=== PATIENT | female | born 1960 | race Caucasian/White ===

== ENCOUNTER 2023-07-18 14:14 | Emergency (ER) | payer BC, SELFPAY ==
[2023-07-18 14:14] VITALS: BMI 24.7
[2023-07-18 14:23] VITALS: BP 157/96
[2023-07-18 14:55] LABS: % Basophils 0.6 % (0-2); % Immature Granulocytes 0.3 % (0-0.5); % Lymphocytes 34.2 % (20.5-51.1); % Monocytes 8.2 % (1.7-9.3); % Neutrophils 51.7 % (42.2-75.2); Absolute Basophils 0.1 10^3/uL (0-0.2); Absolute Eosinophils 0.4 10^3/uL (0-0.7); Absolute Lymphocytes 2.7 10^3/uL (1.2-3.4); Absolute Monocytes 0.7 10^3/uL (0.1-0.6); Absolute Neutrophils 4.1 10^3/uL (1.4-6.5); Hemoglobin 15.3 g/dL (12.0-16.0); Mean Corp Hgb Conc. 35.6 g/dL (33.0-37.0); Mean Corpuscular Hgb 31.4 pg (27.0-31.0); Mean Corpuscular Volume 88.1 fL (81.0-99.0); Mean Platelet Volume 9.6 fL (7.4-10.4); Nucleated Red Blood Cells % 0 %; Platelet Count 319 10^3/uL (130-400); Red Blood Cell Count 4.88 10^6/uL (4.20-5.40); Red Cell Dist. Width 12.8 % (11.5-14.5)
[2023-07-18 15:00] LABS: ALT (SGPT) 19 U/L (0-35); AST (SGOT) 27 U/L (14-36); Alkaline Phosphatase 63 U/L (38-126); Blood Urea Nitrogen 16 mg/dl (7-17); Calcium 10.2 mg/dl (8.4-10.2); Carbon Dioxide 29 mmol/L (22-30); Chloride 99 mmol/L (98-107); Glucose 114 mg/dl (70-99); Potassium 4.1 mmol/L (3.5-5.1); Sodium 138 mmol/L (135-145); Total Bilirubin 0.7 mg/dl (0.2-1.3); Total Protein 7.6 g/dl (6.3-8.2); eGFR > 60.00
[2023-07-18 15:12] LABS: Troponin I < 0.012 ng/ml
[2023-07-18 17:16] VITALS: BP 137/96
[2023-07-18 18:00] VITALS: BP 142/95
--- NOTE | 2023-07-18 18:22 | ED.GENMED ---
History of Present Illness
General
Chief Complaint: Breathing Problem
Source: patient
Exam Limitations: none
Time Seen by Provider: 07/18/23 17:25
Nursing documentation reviewed up to this point in time: agreed with
Travel History
Have you had any contact with someone who has COVID-19?: No
Do you have any symptoms of coronavirus? Fever > 100 degrees, chills, cough, shortness of breath, sore throat, loss of taste or smell, muscle aches, or headache?: No
History of Present Illness
History of Present Illness:
Patient with history of 'asthma', presents to ED secondary to persistent cough with shortness of breath over the past 3 days. Denies any fever or chills. Denies chest pain. Denies back pain. Denies nausea, vomiting, or diarrhea. Denies loss of
appetite. Denies recent travel or surgery. Denies leg pain or swelling. 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 As such, patient states that she is in a tight enclosed space without much
ventilation. Patient has had similar symptoms in the past, and has been prescribed Flonase as well as inhaler, which has not helped recently.
Past History
Past History
ED Past Medical History: HTN and Other (Chronic headaches, hiatal hernia)
ED Past Surgical History: Gynecological
Social History
Personal:
Review of Systems
Review of Systems
Allergies reviewed?: Yes
All Other Systems: ROS reviewed and negative except as documented in HPI and ROS
Constitutional: Reports no symptoms; Denies fever
EENT: Reports no symptoms
Respiratory: Reports cough and trouble breathing
Cardiac: Reports no symptoms
ABD/GI: Reports no symptoms
Musculoskeletal: Reports no symptoms
Skin: Reports no symptoms
Neurological: Reports no symptoms
Phy Exam
Physical Exam
Physical Exam:
Physical Exam
General: mild respiratory distress, not acutely ill. afebrile
Head: nc/at. eomi
Neck: supple. no meningeal signs.
Heart: s1/s2 regular rate and rhythm, no murmur. equal radial pulses.
Lungs: mild respiratory distress. diffuse expiratory wheezing bilaterally
Abdomen: normal bowel sounds. not tender.
Neuro: alert and oriented. no focal neurological deficits
Skin: no rash
Psychiatric: well kept. interactive and cooperative
Extremities: no edema. no calf tenderness.
Scores
Heart Failure Risk
Heart Failure Risk Score: Not Applicable
Course
Orders/Labs/Results
Orders:
Orders
07/18/23 14:25
Electrocardiogram (*1) Urgent
Reason for Study: Other
Other Reason for Exam: Respiratory Distress
EKG- Treatment ONCE
CR Chest - 2 Views Urgent
Comment:
Reason For Exam: respiratory distress
07/18/23 14:36
Complete Blood Count/With Diff Urgent
Comprehensive Metabolic Panel Urgent
Troponin I Urgent
07/18/23 18:39
Albuterol Sulfate [Ventolin Nebules] 7.5 mg INH R NOW STA
Guaifenesin/Codeine Solution [Robitussin AC] 10 ml PO NOW STA
Ipratropium Nebs [Atrovent Nebules] 1 mg INH R NOW STA
Prednisone [Deltasone] 50 mg PO NOW STA
07/18/23 20:58
COVID-19 Antigen Urgent
Source: Nasal Swab
07/18/23 21:23
Azithromycin [Zithromax] 500 mg PO NOW STA
Abnormal Lab Results
07/18/23
14:36
MCH 31.4 H pg
(27.0-31.0)
Absolute Monos (auto) 0.7 H 10^3/uL
(0.1-0.6)
Glucose 114 H mg/dl
(70-99)
07/18/23 14:36
07/18/23 14:36
Vital Signs
Initial and Last Documented VS:
Initial Vital Signs
Temp Pulse Resp BP Pulse Ox
98.3 F 103 26 157/96 95
07/18/23 14:23 07/18/23 14:23 07/18/23 14:23 07/18/23 14:23 07/18/23 14:23
Last Documented Vital Signs
Temp Pulse Resp BP Pulse Ox
98.3 F 107 19 133/84 95
07/18/23 14:23 07/18/23 21:15 07/18/23 21:15 07/18/23 20:00 07/18/23 14:23
MDM/Problems Addressed
MDM/Problems Addressed:
History and exam consistent with likely acute bronchitis. Otherwise, patient remains afebrile, hemodynamically stable, without acute respiratory distress. Patient reports significant improvement in symptoms after treatment. Patient will be
treated empirically with Zithromax, prednisone, cough medication, along with continual use of inhaler at home. Advised PCP follow-up as an outpatient, or return to ED with worsening symptoms.
*EKG
Interpreted by ED Provider?: Yes
EKG Intrepretation Date: 07/18/23
Heart Rate: 81
Rate: normal
Rhythm: sinus and sinus arrhythmia
[place]: normal axis
Interval: normal interval
QRS Pattern: normal QRS
*Critical Care Note
Total Time (30-74mins, 75-104mins- exclusive of procedures): Not Applicable
ED Attending Note
-
Portions of this chart may have been created with voice recognition software.� Occasional wrong word or��sound alike� substitutions may have occurred due to the inherent limitations of voice recognition software.
Discharge Plan
Departure
Patient Disposition: Home (Routine Discharge)
Date of Disposition: 07/18/23
Time of Disposition: 21:25
Patient with high blood pressure during this ER visit?: Yes
Condition: Good
Covid-19: Negative COVID-19
Discharge Problem:
Acute bronchitis
Instructions: Acute Bronchitis, Adult (DC)
Prescriptions:
New
azithromycin [Zithromax] 250 mg tablet
250 mg PO DAILY 4 Days Qty: 4 0RF
prednisone 50 mg tablet
50 mg PO DAILY Qty: 2 0RF
benzonatate 100 mg capsule
100 mg PO TID PRN (Reason: Cough) Qty: 20 0RF
albuterol sulfate [ProAir HFA] 90 mcg/actuation Hfa Aerosol Inhaler
2 puff INHALATION Q4HPRN PRN (Reason: shortness of breath) Qty: 8.5 0RF
No Action
oxycodone-acetaminophen [Percocet] 5-325 mg tablet
1 tab PO Q4HPRN PRN (Reason: pain) Qty: 10 0RF
pantoprazole [Protonix] 40 mg tablet,delayed release (DR/EC)
40 mg PO DAILY Qty: 60 0RF
Rx Instructions:
Please take 30 minutes prior to eating or drinking anything in the morning.
Take BID x 14 days then daily thereafter
amlodipine 5 mg tablet
5 mg PO DAILY Qty: 30 0RF
Referrals:
Noreen Walker DO [Family Provider] -
Stand Alone Forms: Return to Work
Activity Restrictions/Additional Instructions:
As discussed, please follow-up with your primary care physician for reevaluation. Your prescriptions have been sent electronically to [facility] pharmacy in [place].
Interventions
Interventions:
*Risk Screen - Suicide Last Done: 07/18/23 14:20
*General Assessment Last Done: 07/18/23 14:20
*Neglect/Abuse Screening Last Done: 07/18/23 14:20
ED- Fall Risk Assessment Last Done: 07/18/23 17:31
*ED COVID-19 Vaccine History Last Done: 07/18/23 21:35
*Nursing Disposition Last Done: 07/18/23 21:35
ED- Cardiac Assessment Last Done: 07/18/23 17:31
ED- Pulmonary Assessment Last Done: 07/18/23 17:31
Discharge Date and Time
Discharge Date/Time: 07/18/23 21:36
[2023-07-18] MEDS: DELTASONE 50 MG PO (18:52)
[2023-07-18] MEDS: ROBITUSSIN AC 10 ML PO (18:52)
[2023-07-18] MEDS: ATROVENT NEBULES 1 MG INH (18:53)
[2023-07-18] MEDS: VENTOLIN NEBULES 7.5 MG INH (18:53)
[2023-07-18 19:00] VITALS: BP 151/100
[2023-07-18 20:00] VITALS: BP 133/84
[2023-07-18 21:17] LABS: COVID-19 Antigen Negative (Negative)
[2023-07-18] MEDS: ZITHROMAX 500 MG PO (21:26)
== END 2023-07-18 21:36 | disposition home or self-care (01) ==
LOC: EMR 14:14
PROVIDERS: Physician Assistant Medical; EMERGENCY PHYSICIAN Emergency Medicine; FAMILY PHYSICIAN Internal Medicine
DX: J20.9 Acute bronchitis, unspecified (principal); I10 Essential (primary) hypertension; Z11.52 Encounter for screening for COVID-19
CPT/HCPCS: 99285; 94640; 71046; 80053; 84484; 85025; 87811; 93005